=== PATIENT | male | born 1950 | race Two or more races ===

== ENCOUNTER 2022-07-30 09:22 | Outpatient (CLI) | payer OTHER | END 2022-07-30 09:26 | disposition home or self-care (01) | LOC: NUCLEAR 09:22 | PROVIDERS: ATTEND Internal Medicine | DX: Z13.6 Encounter for screening for cardiovascular disorders (principal); Z95.810 Presence of automatic (implantable) cardiac defibrillator; Z95.5 Presence of coronary angioplasty implant and graft; I21.02 ST elevation (STEMI) myocardial infarction involving left anterior descending coronary artery; I50.20 Unspecified systolic (congestive) heart failure; E03.9 Hypothyroidism, unspecified; I63.9 Cerebral infarction, unspecified ==

== ENCOUNTER 2023-01-08 08:20 | Outpatient (CLI) | payer OTHER | END 2023-01-08 08:21 | disposition home or self-care (01) | LOC: NUCLEAR 08:20 | PROVIDERS: ATTEND Internal Medicine | DX: I50.20 Unspecified systolic (congestive) heart failure (principal) ==